=== PATIENT | male | born 1945 | race Caucasian/White ===

== ENCOUNTER 2016-05-01 17:06 | Inpatient (IN) | payer MEDICARE ==
[~2016-05-01] VITALS: Ht 172.7 cm; Wt 81.8 kg
[2016-05-01] MEDS ORDERED: ASPIRIN 81 MG CHEW TAB ONE (18:26)
[2016-05-01] MEDS ORDERED: SODIUM CHLORIDE 0.9% FLUSH BAG 500 ML IV PRN (21:30)
[2016-05-01] MEDS ORDERED: TEMAZEPAM 7.5 MG CAP PO PRN (21:30)
[2016-05-01] MEDS ORDERED: DOCUSATE SOD 100 MG CAP PO PRN (21:30)
[2016-05-01] MEDS ORDERED: SALINE FLUSH 10 ML FLUSH PRN (21:30)
[2016-05-01] MEDS ORDERED: NITROGLYCERIN SL 0.4 MG TAB SL PRN (21:30)
[2016-05-01] MEDS ORDERED: TRAMADOL 50 MG TAB PO PRN (21:30)
[2016-05-01] MEDS ORDERED: MORPHINE 2 MG/ML SYR IV PRN (21:30)
[2016-05-01] MEDS ORDERED: ONDANSETRON 4 MG VIAL IV PRN (21:30)
[2016-05-01] MEDS ORDERED: LORAZEPAM 0.5 MG TAB PO PRN (21:30)
[2016-05-01] MEDS ORDERED: NITROGLYCERIN 50 MG/250 ML IV PRN (21:30)
[2016-05-01] MEDS ORDERED: ACETAMINOPHEN 325 MG TAB PO PRN (21:35)
[2016-05-01] MEDS ORDERED: ASPIRIN 81 MG CHEW TAB PO ONE (21:35)
[2016-05-01 23:24] VITALS: BP_SYST 158; RESP 18; TEMP 98.4
[2016-05-01 23:25] VITALS: BMI 27.4
[2016-05-02 00:27] VITALS: RESP 16
[2016-05-02 03:03] VITALS: BP_SYST 121; RESP 16; TEMP 97.3
[2016-05-02 07:15] VITALS: BP_SYST 139; RESP 18; TEMP 97.6
[2016-05-02] MEDS ORDERED: KCL CR 20 MEQ TAB PO ONE (10:05)
[2016-05-02] MEDS: BUPROPION HCL 75 MG TAB PO SCH ×2 (11:04→21:22)
[2016-05-02] MEDS: ASPIRIN EC 81 MG TAB PO SCH (11:04)
[2016-05-02] MEDS: LEVOTHYROXINE 0.088 MG TAB PO SCH (11:04)
[2016-05-02] MEDS: LORAZEPAM 2 MG/ML VIAL IV SCH ×2 (11:05→21:23)
[2016-05-02] MEDS: ENOXAPARIN 80 MG/0.8 ML SYR SUBQ SCH ×2 (11:07→23:00)
[2016-05-02] MEDS: SALINE FLUSH 10 ML FLUSH SCH ×2 (11:09→21:23)
[2016-05-02 11:20] VITALS: BP_SYST 128; RESP 18; TEMP 97.8
[2016-05-02 15:00] VITALS: BP_SYST 114; RESP 16; TEMP 98.7
[2016-05-02 20:10] VITALS: BP_SYST 141; RESP 18; TEMP 97.9
[2016-05-02] MEDS ORDERED: PANTOPRAZOLE 40 MG TAB PO SCH (21:00)
[2016-05-03] VITALS (15 sets, daily range): BP systolic 106–143; RESP 18; TEMP 97.6–97.9
[2016-05-03] MEDS: LEVOTHYROXINE 0.088 MG TAB PO SCH (05:16)
[2016-05-03] MEDS: ENOXAPARIN 80 MG/0.8 ML SYR SUBQ SCH (08:02)
[2016-05-03] MEDS: SALINE FLUSH 10 ML FLUSH SCH (08:07)
[2016-05-03] MEDS: ASPIRIN EC 81 MG TAB PO SCH (08:07)
[2016-05-03] MEDS: LORAZEPAM 2 MG/ML VIAL IV SCH (08:29)
[2016-05-03] MEDS: BUPROPION HCL 75 MG TAB PO SCH (08:29)
[2016-05-03] MEDS ORDERED: LIDOCAINE 2% 20 ML ONE (16:44)
[2016-05-03] MEDS ORDERED: FENTANYL 100 MCG/2 ML AMP ONE (16:44)
[2016-05-03] MEDS ORDERED: MIDAZOLAM 2 MG/2 ML INJ ONE (16:44)
== END 2016-05-03 16:50 | disposition short-term general hospital (02) | DRG 282 ==
LOC: ER 17:06 → EMR 21:03 → PCU 22:51 → OBSVTOIN 05-02 10:05 → ENPENDDIS 05-02 10:05
PROVIDERS: ADMIT Specialist; ATTEND Specialist
PROC: 4A023N7 Measurement of Cardiac Sampling and Pressure, Left Heart, Percutaneous Approach (ICD-10-PCS; principal; 2016-05-03)
PROC: B2111ZZ Fluoroscopy of Multiple Coronary Arteries using Low Osmolar Contrast (ICD-10-PCS; 2016-05-03)
PROC: B2151ZZ Fluoroscopy of Left Heart using Low Osmolar Contrast (ICD-10-PCS; 2016-05-03)
DX: I21.4 Non-ST elevation (NSTEMI) myocardial infarction (principal); I10 Essential (primary) hypertension; F41.9 Anxiety disorder, unspecified; F32.9 Major depressive disorder, single episode, unspecified; K21.9 Gastro-esophageal reflux disease without esophagitis; E03.9 Hypothyroidism, unspecified; I25.10 Atherosclerotic heart disease of native coronary artery without angina pectoris; E87.6 Hypokalemia; M19.90 Unspecified osteoarthritis, unspecified site
CPT/HCPCS: 36415; 71010; 80053; 80061; 82550; 82553; 83735; 84484; 85025; 85610; 85730; 93005; 93306; 93458; 94799